=== PATIENT | female | born 1975 | race Caucasian/White ===

== ENCOUNTER → 2017-08-03 | Day surgery (SDC) | payer OTHER ==
--- NOTE | 2017-08-03 14:11 | NUCLEAR MEDICINE REPORT ---
EXAMINATION: LYMPHOSCINTIGRAPHY CLINICAL INFORMATION: Left breast cancer. COMPARISON: None. TECHNIQUE: A total of 1.0 mCi technetium 99m Lymphoseek was injected in divided doses around the left areola by ESTELLA Godwin. Images of the left breast and axilla in the anterior, TAMAZIGHT, and left lateral projections were obtained with simultaneous visualization of the body silhouette using a cobalt flood source, with the patient positioned between the flood source and the gamma camera. FINDINGS: A sentinal node is well visualized in the left axilla. A faint second echelon node is visualized in the high left axilla. IMPRESSION: A sentinal node in the left axilla is well visualized.
--- NOTE | 2017-08-03 16:04 | Operative Report ---
Operative/Inv Procedure Report Surgery Date: 08/03/17 Name of Procedure: Right breast biopsy with wire localization, left breast partial mastectomy with wire localization, left sentinel lymph node biopsy Pre-Operative Diagnosis: Left breast cancer, right sclerosing papillary lesion Post-Operative Diagnosis: Same Estimated Blood Loss: less than 50ml Surgeon/Javascript Software Engineer: Jill Mills MD Anesthesia: laryngeal mask airway Specimens: Right breast biopsy, left lumpectomy, cranial margin, medial margin, caudal margin, sentinel lymph node Operative/Procedure Note Note: Patient is status post diagnosis of a left breast cancer. Preoperative workup revealed a right-sided complex sclerosing lesion with FEA. Preoperative wire localization was performed as well as lymphoscintigraphy. Those films were reviewed. She is brought to the operating room placed supine on table. Anesthesia was administered and bilateral breasts were prepped and draped in a sterile fashion using ChloraPrep. He cc of methylene blue diluted with 2 mL of saline was injected in the retroareolar fashion and the left breast. The right breast was approached first. Local anesthesia 1% lidocaine mixed half percent Marcaine was given and a curvilinear incision was made in the periareolar region. The wire was brought into the incision and the area of concern was grasped using an Allis clamp. Hematoma was dissected from the skin. Hematoma was entered and both clips were visible. The hematoma cavity was excised in total. Intraoperative x -ray was performed with the clips in the film. Hemostasis was adequate. Deep tissue was proximal made using interrupted Vicryl sutures, and the skin was closed using a running Biosyn subcuticular stitch. The left breast was then approached. Local anesthesia was again administered. The axilla was approached first. A transverse incision was made in the lower axilla. The axilla was explored and there was a single hot, blue lymph node. This was excised as sentinel lymph node. There was no other hot, blue, or palpable lymph nodes in the axilla. Clavipectoral fascia was closed using interrupted Vicryl sutures and skin was closed using running Biosyn subcuticular stitch. The breast was then approached. The location of the tumor was in the extreme cranial aspect of the breast at 12:00. A curvilinear incision was made around the areola after anesthesia was administered for cosmesis. Bladed retractors were used to bring the wire into the incision. The area of concern was grasped using an Allis clamp and dissected. The wire was dislodged during this dissection. Specimen was removed and marked for orientation using margin map. Intraoperative x-ray failed to confirm the presence of the clip. Additional medial tissue was taken. This was marked it with a suture at the medial aspect. Upon further explanation of the wound the clip was visible just medial to the additional tissue. This tissue was excised and marked for orientation using margin map. Intraoperative x-ray confirmed the presence of the clip in the specimen. The specimen was walked over to the pathology department and reviewed with the pathologist. Additional margins were taken in the cranial, caudal, and medial positions. Clavipectoral fascia was widely in the lumpectomy bed. The dissection along the skin margin was in the dermis. The decision was made not to use a BioSorb Marker given the likely palpability of the marker in that location. The margins of the lumpectomy were marked using mammary clips. Hemostasis was achieved and deep tissue was proximal made using interrupted Vicryl sutures. The skin was closed using a running Biosyn subcutaneous color stitch. Steri-Strips and sterile dressings were applied and the patient was transferred to the recovery room in satisfactory condition having tolerated the procedure well.
--- NOTE | 2017-08-03 17:18 | MAMMOGRAPHY REPORT ---
PROCEDURE: MM GUIDANCE FOR BREAST PREOPERATIVE NEEDLE LOCALIZATION, RIGHT MM SPECIMEN RADIOGRAPHY CLINICAL INFORMATION: A 42-year-old female with biopsy-proven invasive ductal carcinoma at 11 o'clock, 5 cm from the nipple diagnosed on ultrasound-guided biopsy done on 06/29/2017. Subsequent bilateral breast MRI showed 2 suspicious foci of enhancement within the right breast at 8 o'clock, 3 cm from the nipple and also at 8 o'clock, 5 cm from the nipple on breast MRI done on 07/07/2017. Subsequent MR-guided biopsy done on 07/19/2017 showed complex sclerosing lesion at 8 o'clock, 3 cm from the nipple, and normal breast tissue at 8 o'clock, 5 cm from the nipple. Preoperative needle localization is requested. The findings were reviewed with Dr. Mills, and a decision was made to place the localization wire in the center of the 2 tissue markers. COMPARISON: Prior studies done on 07/19/2017, 07/07/2017, and 06/29/2017. TECHNIQUE/FINDINGS: The details of the procedure, as well as the risks, benefits, and alternatives to the procedure were explained to the patient in detail and all of her questions were answered, after which, written informed consent was obtained. Prior to the procedure, the previous mammographic-guided tissue markers were localized using CC and ML views. Please note that there is a small hematoma identified at this time in the biopsy bed. No discrete mass is visualized. A time-out was performed, the lesion intended for needle localization was targeted and the skin of the right breast was then prepped and draped in the usual sterile fashion. Using mammographic guidance, sterile technique and buffered 2% lidocaine without epinephrine for local anesthesia, a 5 cm Kopans needle-wire was placed in the middle of the tissue markers seen at 8 o'clock, 3 and 5 cm from the nipple respectively, within the right breast. The patient tolerated the procedure well. A worksheet was appropriately filled out and was sent with the patient to the OR. Subsequently, following excision of the mass, specimen radiography was performed which revealed intact wire, and the previously placed tissue markers within the adjacent hematoma. IMPRESSION: 1. Successful mammographic-guided needle localization of the right breast biopsy-proven complex sclerosing lesion at 8 o'clock. 2. Final specimen radiograph confirming removal of the previously placed tissue markers and intact wire combination.
--- NOTE | 2017-08-03 17:25 | MAMMOGRAPHY REPORT ---
PROCEDURE: US GUIDANCE FOR BREAST PREOPERATIVE NEEDLE LOCALIZATION, LEFT MM POST NEEDLE LOCALIZATION SINGLE CC VIEW, LEFT BREAST SPECIMEN RADIOGRAPHY CLINICAL INFORMATION: Biopsy proved left-sided invasive ductal carcinoma at 11 o'clock, 5 cm from the nipple. Preoperative needle localization is requested. COMPARISON: Prior studies done on 06/29/2017. TECHNIQUE AND FINDINGS: The details of the procedure, as well as the risks, benefits, and alternatives to the procedure were explained to the patient in detail and all of her questions were answered, after which, written informed consent was obtained. Prior to the procedure, sonography revealed the indexed biopsy proved malignancy at 11 o'clock, 5 cm from the nipple containing a tissue marker, measures 1.5 cm at its maximum dimension. A timeout was performed, the lesion intended for needle localization was targeted and the skin of the left breast was then prepped and draped in the usual sterile fashion. Using sonographic guidance, sterile technique and buffered 2% lidocaine without epinephrine for local anesthesia, a 5 cm Kopan's needle was placed within the biopsy proved malignancy at 11 o'clock, 5 cm from the nipple within the left breast. The patient tolerated the procedure well. The single view mammogram further confirmed accurate placement of the wire within the intended mass. No adjustment was felt to be necessary. Previously placed tissue marker was also identified adjacent to the wire. The worksheet was appropriately labeled and was sent to the OR with the patient. Subsequently, following excision of the mass, the specimen radiography was performed which revealed target within the specimen with the previously placed tissue marker within the mass. The localization wire apparently fell off and accordingly was not included within the specimen radiograph. Dr. Mills was aware of this. IMPRESSION: 1. Successful sonographic guided wire localization of the left breast biopsy proved invasive ductal carcinoma at 11 o'clock, 5 cm from the nipple. 2. Mammographic confirmation of accurate needle localization along with appropriate marking for presurgical roadmap with worksheet. 3. Final specimen radiograph confirming complete, adequate excision of the mass and removal of the previously placed tissue marker. The localization wire apparently fell off and accordingly was not included within the specimen radiograph. Dr. Mills was aware of this. Results were called to Dr. Mills in the operating room at the time of imaging. The histology report is pending.
== END ==
LOC: STS 02:14 → CBW.IIU 07:00 → CBW.US 08:40
DX: C50.912 Malignant neoplasm of unspecified site of left female breast (principal); Z17.0 Estrogen receptor positive status [ER+]; D24.1 Benign neoplasm of right breast
CPT/HCPCS: 76942; 77065-LT; 81025; A9520; J0131; J0690; J2001; J2250; J2405; Q9968

== ENCOUNTER → 2017-08-18 | Day surgery (SDC) | payer OTHER ==
[~2017-08-18] VITALS: Ht 162.6 cm; Wt 57.2 kg
--- NOTE | 2017-08-18 11:17 | Operative Report ---
Operative/Inv Procedure Report Surgery Date: 08/18/17 Name of Procedure: Reexcision left lumpectomy Pre-Operative Diagnosis: Positive margin, anterior and posterior status post left partial mastectomy Post-Operative Diagnosis: Same Estimated Blood Loss: scant Surgeon/Electric Organ Assembler And Checker: Jill Mills MD Anesthesia: local monitored anesthesi Specimens: Anterior margin, posterior margin Operative/Procedure Note Note: Patient status post partial mastectomy with close anterior and posterior margins. She is brought for reexcision. Prior incision was periareolar to approach a lesion at the extreme upper aspect at 12:00. Because of the involvement of the anterior and posterior margins, a skin resection was recommended. Should brought to the operating room on 219 placed supine on table. The left breast prepped and draped in a sterile fashion using ChloraPrep. 2 g of Ancef was given. Local anesthesia 1% Marcaine mixed Marcaine Was Given. A radial incision was made to encompass an ellipse of skin at 12:00. Tissues taken down to the lumpectomy cavity. The lumpectomy cavity was visualized in the posterior aspect was removed. A small amount of tissue overlying the pectoralis fascia was removed and marked for orientation. There was approximately 8 cm x 6 cm of pectoralis muscle visible in the bed of the lumpectomy. Clips were placed to lori the margins. Hemostasis was adequate. Deep tissue was approximated using an interrupted Vicryl sutures and the skin was closed using running Biosyn subcuticular stitch. Steri-Strips and sterile dressings were applied and patient transferred to the recovery room in satisfactory condition having tolerated procedure well.
== END ==
LOC: STS 01:29
DX: C50.912 Malignant neoplasm of unspecified site of left female breast (principal)
CPT/HCPCS: J0690; J2250